=== PATIENT | female | born 1935 | race Hispanic/Latino ===

== ENCOUNTER 2021-03-21 12:17 | Outpatient (CLI) | payer MEDICARE, MEDICAID | END 2021-03-21 12:18 | disposition home or self-care (01) | LOC: CSHRAD 12:17 | PROVIDERS: ATTEND Family Medicine | DX: M54.2 Cervicalgia (principal); M47.812 Spondylosis without myelopathy or radiculopathy, cervical region | CPT/HCPCS: 72050 ==